=== PATIENT | female | born 1995 | race Caucasian/White ===

== ENCOUNTER 2024-06-22 13:27 | Inpatient (IN) | payer MEDICARE, MEDICAID, SELFPAY ==
[2024-06-22 13:29] VITALS: BP 124/80; PULSE 95; RESP 18; TEMP 36.5; O2SAT 96; BMI 46.4
--- NOTE | 2024-06-22 13:42 | EX.ED.DYSGE1 ---
HPI <LEXII Knapp - Last Filed: 06/22/24 15:47> History of Present Illness Chief Complaint: Substance Abuse Narrative Narrative: 28-year-old female is here requesting detox from smoking fentanyl and methamphetamine. Last use was 2 days ago. She denies withdrawal symptoms but called [facility] because she wanted to go to a residential treatment program and they sent her here for medical clearance. She has been smoking meth for 5 years been smoking fentanyl for 2 years. She also smokes weed. No alcohol use. No IV drug use. No history of detox in the past. She states she has mental health issues but is not on any prescription medications. She denies feeling suicidal or homicidal. [facility] <LEXII Knapp - Last Filed: 06/22/24 15:47> [facility] Medical History (Updated 06/22/24 @ 14:57 by Aurora Peng) Substance abuse Home Medications ?Medication ?Instructions ?Recorded ?Last Taken ?Type NK 06/22/24 Unknown History Allergy/AdvReac Type Severity Reaction Status Date / Time Penicillins Allergy Anaphylaxis Verified 06/22/24 13:33 Social History Smoking Status: Current every day smoker tobacco type: cigarettes ROS <LEXII Knapp - Last Filed: 06/22/24 15:47> ROS ED ROS Narrative Constitutional: Negative for fever, chills, malaise. CVS: Negative for chest pain. Respiratory: Negative for shortness of breath. GI: Negative for abdominal pain, nausea, vomiting, diarrhea. EXAM <LEXII Knapp - Last Filed: 06/22/24 15:47> Physical Exam Narrative Exam Narrative: CONST: Patient sitting in no acute distress. EYES: Normal inspection. NECK: Normal inspection. RESP: No respiratory distress, CTAB. CVS: Regular rate and rhythm, no murmur, no gallop. ABD: Soft and nontender, no guarding or rebound, nondistended. SKIN: Color normal, no rash, warm, dry, intact. EXTREMITIES: Normal appearance, no pedal edema. NEURO: Alert and answering questions appropriately. PSYCH: Normal affect. Const Vital Signs: 06/22/24 13:29 06/22/24 15:04 Temperature 97.7 F L 98.2 F Temperature Source Temporal Pulse Rate 95 78 Respiratory Rate 18 14 Blood Pressure 124/80 H 124/71 H Blood Pressure Mean 94 88 Pulse Ox 96 99 Oxygen Delivery Method Room Air <Dr. Wing Medley DO - Last Filed: 06/22/24 15:29> Physical Exam Const Vital Signs: 06/22/24 13:29 06/22/24 15:04 Temperature 97.7 F L 98.2 F Temperature Source Temporal Pulse Rate 95 78 Respiratory Rate 18 14 Blood Pressure 124/80 H 124/71 H Blood Pressure Mean 94 88 Pulse Ox 96 99 Oxygen Delivery Method Room Air MDM <LEXII Knapp - Last Filed: 06/22/24 15:47> [facility] MDM Narrative Medical decision making narrative: 28-year-old female is here to detox from smoking fentanyl methamphetamine with last use 2 days ago. She is asymptomatic. She was sent here by [facility]. She appears well and nontoxic. Vital signs stable. Overall her exam is unremarkable. CBC and CMP are unremarkable. Urine tox screen positive for amphetamines, benzodiazepines, and cannabinoids. Alcohol negative. test negative. I discussed the case with the hospitalist for admission. Lab Data Attestation: I reviewed the patient's lab results. Labs: Laboratory Results - last 24 hr 06/22/24 06/22/24 13:05 13:45 WBC 6.2 RBC 5.01 Hgb 13.9 Hct 42.9 MCV 85.6 MCH 27.7 MCHC 32.4 RDW Std Deviation 46.2 H RDW Coeff of Estiven 14.7 H Plt Count 221 MPV 11.5 Immature Gran % (Auto) 0.300 Neut % (Auto) 67.4 Lymph % (Auto) 22.2 [place] % (Auto) 6.7 Eos % (Auto) 2.6 Baso % (Auto) 0.8 Absolute Neuts (auto) 4.2 Absolute Lymphs (auto) 1.38 Nucleated RBC % 0 Sodium 138 Potassium 4.2 Chloride 106 Carbon Dioxide 21.5 Anion Gap 11 BUN 4 Creatinine 0.80 Estim Creat Clear Calc 132.94 Est GFR (MDRD) Non-Af 102 BUN/Creatinine Ratio 5.3 L Glucose 95 Calcium 9.2 Total Bilirubin 0.57 AST 17 ALT 10 Alkaline Phosphatase 84 Total Protein 7.9 Albumin 4.1 Globulin 3.9 Albumin/Globulin Ratio 1.1 Serum , Qual NEGATIVE Urine Opiates Screen NEGATIVE U Buprenorphine Qual NEGATIVE Ur Oxycodone Screen NEGATIVE Urine Methadone Screen NEGATIVE Urine Fentanyl Screen PRESUMPTIVE POSITIVE Ur Barbiturates Screen NEGATIVE Ur Phencyclidine Scrn NEGATIVE Ur Amphetamines Screen PRESUMPTIVE POSITIVE U Benzodiazepines Scrn PRESUMPTIVE POSITIVE Urine Cocaine Screen NEGATIVE U Cannabinoids Screen PRESUMPTIVE POSITIVE Ethyl Alcohol < 10.1 <Dr. Wing Medley, DO - Last Filed: 06/22/24 15:29> MDM History & Record Review Discussion w/independent historian: Patient Lab Data Labs: Laboratory Results - last 24 hr 06/22/24 06/22/24 13:05 13:45 WBC 6.2 RBC 5.01 Hgb 13.9 Hct 42.9 MCV 85.6 MCH 27.7 MCHC 32.4 RDW Std Deviation 46.2 H RDW Coeff of Estiven 14.7 H Plt Count 221 MPV 11.5 Immature Gran % (Auto) 0.300 Neut % (Auto) 67.4 Lymph % (Auto) 22.2 [place] % (Auto) 6.7 Eos % (Auto) 2.6 Baso % (Auto) 0.8 Absolute Neuts (auto) 4.2 Absolute Lymphs (auto) 1.38 Nucleated RBC % 0 Sodium 138 Potassium 4.2 Chloride 106 Carbon Dioxide 21.5 Anion Gap 11 BUN 4 Creatinine 0.80 Estim Creat Clear Calc 132.94 Est GFR (MDRD) Non-Af 102 BUN/Creatinine Ratio 5.3 L Glucose 95 Calcium 9.2 Total Bilirubin 0.57 AST 17 ALT 10 Alkaline Phosphatase 84 Total Protein 7.9 Albumin 4.1 Globulin 3.9 Albumin/Globulin Ratio 1.1 Serum , Qual NEGATIVE Urine Opiates Screen NEGATIVE U Buprenorphine Qual NEGATIVE Ur Oxycodone Screen NEGATIVE Urine Methadone Screen NEGATIVE Urine Fentanyl Screen PRESUMPTIVE POSITIVE Ur Barbiturates Screen NEGATIVE Ur Phencyclidine Scrn NEGATIVE Ur Amphetamines Screen PRESUMPTIVE POSITIVE U Benzodiazepines Scrn PRESUMPTIVE POSITIVE Urine Cocaine Screen NEGATIVE U Cannabinoids Screen PRESUMPTIVE POSITIVE Ethyl Alcohol < 10.1 Treatment and Re-Evaluation :: I have personally performed a face to face assessment of the patient and have reviewed the ADY Note. I performed a substantive portion of the visit including all aspects of the following. My wray findings include: History is 28-year-old female presenting to the emergency room requesting admission to [facility] for detoxification of fentanyl and amphetamines. Patient states that she has been clean since of her child until 1 month ago. She gave in December. She states that [facility] is involved and she wants to work towards them not being involved. They became involved when she tested positive at . Patient states she called [facility] and referred to the emergency for detox. Patient denies IVDU. She notes a history of mental health but is not currently undergoing any treatment. Exam is patient tearful no suicidal homicidal ideation. Obese female no acute distress. Heart regular without murmur lung sounds are clear and equal. I do not appreciate significant open sores. Medical Decison Making random program labs will be ordered. Will review and discussed with hospitalist. Patient is not . Discharge Plan Triage Chief Complaint: Substance Abuse ED Midlevel Provider: Chastity Morton ED Provider: Wing Medley Dx/Rx/DC Orders Clinical Impression: Polysubstance abuse, Desire for detoxification Prescriptions: No Action NK Primary Care Provider: Care Physician,No Primary Referrals: Care Physician,No Primary [Primary Care Provider] - Print Language: Malian
[2024-06-22 14:02] LABS: Absolute Lymphocyte Count 1.38 X10^3/uL (0.83-4.51); Absolute Neutrophil Count 4.2 X10^3/uL (2.0-7.7); Basophil# 0.05 X10^3/uL; Basophil% 0.8 % (0-1); Eosinophil# 0.16 X10^3/uL; Eosinophils% 2.6 % (0-5); Hematocrit 42.9 % (37-47); Hemoglobin 13.9 g/dL (12.0-15.0); Lymphocyte # 1.38 X10^3/ul (0.83-4.51); Lymphocyte % 22.2 % (19-41); Mean Corp Hgb Conc 32.4 g/dL (32-36); Mean Corpuscular Hgb 27.7 pg (27.0-32.0); Mean Corpuscular Volume 85.6 fL (81-99); Mean Platelet Vol. 11.5 fl (6.2-12.0); Monocyte# 0.42 X10^3/uL; Monocyte% 6.7 % (0-10); NRBC Flagged by Analyzer 0 % (0-5); Neutrophil % 67.4 % (47-70); Platelet Count 221 K/mm3 (150-450); RBC Distribution Width CV 14.7 % (11.6-14.6); RBC Distribution Width SD 46.2 fl (35.1-43.9); Red Blood Count 5.01 M/mm3 (4.2-5.4); White Blood Count 6.2 K/mm3 (4.4-11.0)
[2024-06-22 14:20] LABS: Internal QC Validated? YES +Cl - CLEAR BKGD; Pregnancy, Serum, hCG Quali. NEGATIVE Negative
[2024-06-22 14:27] LABS: Alcohol, Blood (Medical)-Serum < 10.1 mg/dL (<=10.0)
[2024-06-22 14:37] LABS: ALB/GLOB Ratio 1.1 RATIO (0.9-2.4); AST(SGOT) 17 U/L (<=31); Alanine Aminotransfer ALT/SGPT 10 U/L (<=34); Albumin, Serum 4.1 g/dL (3.5-5.0); Alkaline Phosphatase 84 U/L (35-104); Anion Gap 11 (5-15); BUN 4 mg/dL (4-19); BUN/Creat Ratio 5.3 RATIO (10-20); Calcium,Total 9.2 mg/dL (7.6-11.0); Carbon Dioxide 21.5 mmol/L (21.0-32.0); Chloride 106 mmol/L (98-108); EST Glomerular Filtration Rate 102 (>60); Estimated Creatinine Clearance 132.94 ml/min (50-250); Globulin 3.9 g/dL (2.2-4.2); Potassium 4.2 mmol/L (3.3-5.1); Protein, Total 7.9 g/dL (5.9-8.4); Sodium Level 138 mmol/L (133-145); Total Bilirubin 0.57 mg/dL (0.00-1.30)
[2024-06-22 14:42] LABS: Glucose 95 mg/dL (70-99)
[2024-06-22 14:56] LABS: Amphetamine Urine PRESUMPTIVE POSITIVE (<1000 ng/mL); Barbiturate Urine NEGATIVE (< 200 ng/mL); Benzodiazepine Urine PRESUMPTIVE POSITIVE (< 200 ng/mL); Buprenorphine Urine NEGATIVE (< 200 ng/mL); Cocaine Urine NEGATIVE (< 300 ng/mL); Fentanyl, Urine PRESUMPTIVE POSITIVE; Methadone Urine NEGATIVE (< 300 ng/mL); Opiates Urine NEGATIVE (< 300 ng/mL); Oxycodone, Urine NEGATIVE (< 100 ng/mL); PCP Urine NEGATIVE (< 25 ng/mL); THC Urine PRESUMPTIVE POSITIVE (< 50 ng/mL)
[2024-06-22 15:04] VITALS: BP 124/71; PULSE 78; RESP 14; TEMP 36.8; O2SAT 99
[2024-06-22 16:00] VITALS: BP 93/60; PULSE 92; RESP 18; O2SAT 98
[2024-06-22 16:38] VITALS: BP 119/85; PULSE 85; RESP 16; TEMP 36.8; O2SAT 99
[2024-06-22 16:43] VITALS: BMI 46.1
--- NOTE | 2024-06-22 17:10 | HP.PCM.HOS_ITS ---
HPI - General General Date of Admission: 06/22/24 HPI Narrative AMNA VASQUEZ, is a 28 F who presents to the hospital requesting detox from fentanyl and methamphetamines. She smokes both and her last use was on Saturday. She presented to [facility] as an outpatient this morning requesting residential treatment and they requested that she can pleated a medical clearance first prior to going inpatient. She states that she has never gone through withdrawal when she is quit using these drugs in the past. Currently her scores a 0. She denies any IV drug use. [facility] Medical History (Updated 06/22/24 @ 14:57 by Aurora Peng) Substance abuse Home Medications ?Medication ?Instructions ?Recorded ?Last Taken ?Type NK 06/22/24 Unknown History Allergy/AdvReac Type Severity Reaction Status Date / Time Penicillins Allergy Anaphylaxis Verified 06/22/24 13:33 Family History (Updated 06/22/24 @ 17:[address] Cliff Calvert MD) Other Diabetes Heart disease Surgical History (Updated 06/22/24 @ 17:[address] Cliff Calvert MD) History of cholecystectomy Social History Smoking Status: Current every day smoker tobacco type: cigarettes ROS Constitutional Constitutional: Denies chills, fatigue, fever(s) or malaise Eyes Eyes: Denies blurry vision ENT HEENT: Denies headache(s) or nasal discharge Cardiovascular Cardiovascular: Denies chest pain, dyspnea on exertion or syncope Respiratory/Chest Respiratory/Chest: Denies cough, shortness of breath at rest or shortness of breath with exertion Gastrointestinal Gastrointestinal: Denies constipation, diarrhea, nausea or vomiting Genitourinary Genitourinary: Denies dysuria Neurologic Neurologic: Denies focal weakness, numbness or tremor(s) Psychiatric Psychiatric: Denies anxiety or depression Vital Signs Vital Signs Vital Signs: 06/22/24 13:29 06/22/24 15:04 06/22/24 16:00 Temperature 97.7 F L 98.2 F Temperature Source Temporal Pulse Rate 95 78 92 Respiratory Rate 18 14 18 Blood Pressure 124/80 H 124/71 H 93/60 Blood Pressure Mean 94 88 71 Blood Pressure Source Blood Pressure Position Blood Pressure Location Pulse Ox 96 99 98 Oxygen Delivery Method Room Air Room Air 06/22/24 16:38 Temperature 98.2 F Temperature Source Temporal Pulse Rate 85 Respiratory Rate 16 Blood Pressure 119/85 H Blood Pressure Mean 96 Blood Pressure Source Monitor Blood Pressure Position Sitting Blood Pressure Location Right Arm Pulse Ox 99 Oxygen Delivery Method Room Air Weight Weight: 270 lb 8.115 oz Body Mass Index (BMI) 46.1 Physical Exam Narrative General: Alert, Oriented x3, Cooperative, No apparent distress HEENT: Atraumatic, PERRLA, EOMI, Normocephalic Oral: Moist Mucosa Neck: Supple, No JVD Lungs: Clear to auscultation, Normal air movement, No rhonchi, No wheeze, No rales Cardiovascular: Regular rate, Regular Rhythm, Normal S1, Normal S2, No murmurs Abdomen: Soft, Non Tender, Non-Distended, No Hepato-splenomegaly Extremities: No edema, Capillary Refill Less than 3 Seconds Skin: No rashes, No breakdown Musculoskeletal: No Tenderness to Palpation of Joints or Extremities Neurological: No focal neurological deficits, Motor Exam 5/5 strength throughout, Sensory exam intact to light touch and pain Psych/Mental Status: Normal Affect, Appropriate Results Lab / Micro Data 06/22/24 13:45 06/22/24 13:45 Labs: Laboratory Results - last 24 hr 06/22/24 13:05: Urine Opiates Screen NEGATIVE, U Buprenorphine Qual NEGATIVE, Ur Oxycodone Screen NEGATIVE, Urine Methadone Screen NEGATIVE, Urine Fentanyl Screen PRESUMPTIVE POSITIVE, Ur Barbiturates Screen NEGATIVE, Ur Phencyclidine Scrn NEGATIVE, Ur Amphetamines Screen PRESUMPTIVE POSITIVE, U Benzodiazepines Scrn PRESUMPTIVE POSITIVE, Urine Cocaine Screen NEGATIVE, U Cannabinoids Screen PRESUMPTIVE POSITIVE 06/22/24 13:45: WBC 6.2, RBC 5.01, Hgb 13.9, Hct 42.9, MCV 85.6, MCH 27.7, MCHC 32.4, RDW Std Deviation 46.2 H, RDW Coeff of Estiven 14.7 H, Plt Count 221, MPV 11.5, Immature Gran % (Auto) 0.300, Neut % (Auto) 67.4, Lymph % (Auto) 22.2, [place] % (Auto) 6.7, Eos % (Auto) 2.6, Baso % (Auto) 0.8, Absolute Neuts (auto) 4.2, Absolute Lymphs (auto) 1.38, Nucleated RBC % 0, Sodium 138, Potassium 4.2, Chloride 106, Carbon Dioxide 21.5, Anion Gap 11, BUN 4, Creatinine 0.80, Estim Creat Clear Calc 132.94, Est GFR (MDRD) Non-Af 102, BUN/Creatinine Ratio 5.3 L, Glucose 95, Calcium 9.2, Total Bilirubin 0.57, AST 17, ALT 10, Alkaline Phosphatase 84, Total Protein 7.9, Albumin 4.1, Globulin 3.9, Albumin/Globulin Ratio 1.1, Serum , Qual NEGATIVE, Ethyl Alcohol < 10.1 Assessment & Plan Assessment/Plan (1) Desire for detoxification: (2) Polysubstance abuse: PLAN: Plan 1. Fentanyl and methamphetamine abuse requesting detox/tobacco abuse/anxiety/depression ? She does not want a nicotine patch, we did discuss cessation ? Continue with the opiate withdrawal protocol ? She has never gone through withdrawal before and she has been able to quit on her own ? Will have her meet with [facility] for discharge planning to inpatient rehab DVT: Ambulation 60 minutes was spent on direct patient care, including documentation as well as chart review and collaboration with colleagues Charges/Coding Visit Charges Inpatient E&M: 68360 Init Hosp L2
[2024-06-22 21:19] VITALS: BP 98/52; PULSE 94; RESP 18; TEMP 37.2; O2SAT 96
[2024-06-23 04:12] VITALS: BP 115/68; PULSE 96; RESP 18; TEMP 36.9; O2SAT 97
[2024-06-23 07:41] VITALS: BP 110/74; PULSE 83; RESP 16; TEMP 37.3; O2SAT 98
--- NOTE | 2024-06-23 11:27 | ADDICTION ---
This senior copywriter met with PT to conduct ASAM, MSE, DUDIT assessments and to plan for d/c. PT A+Ox4 and participated actively. All assessments completed and placed in PT's chart. PT plans to f/u with [facility] for follow-up in patient treatment services on Saturday. [facility] will transport to treatment.
[2024-06-23 15:55] VITALS: BP 112/71; PULSE 86; RESP 16; TEMP 36.3; O2SAT 98
--- NOTE | 2024-06-23 18:32 | PCM.PN.HOSP ---
Reason for Visit Reason for Visit: Diagnoses Other psychoactive substance abuse, uncomplicated (06/22/24) Subjective Subjective Patient lying in bed, denies any acute symptoms at this time Objective Data Objective Data Vital Signs: Vital Signs Temp Pulse Resp BP Pulse Ox O2 Del Method 97.4 F L 86 16 112/71 98 Room Air 06/23/24 15:55 06/23/24 15:55 06/23/24 15:55 06/23/24 15:55 06/23/24 15:55 06/23/24 15:55 Oxygen Delivery Method Room Air Weight: 122.7 kg Body Mass Index (BMI) 46.1 Intake & Output: Intake and Output for Last 24 Hours 06/21/24 06/22/24 06/23/24 23:59 23:59 23:59 Intake Total 100 / 100 200 / 200 Balance 100 / 100 200 / 200 Lab / Micro Data 06/22/24 13:45 06/22/24 13:45 Physical Exam Narrative General: Alert, oriented, no apparent distress HEENT: Atraumatic, normocephalic Eyes: extraocular movements grossly intact Neck: Supple Respiratory: normal respiratory effort Cardiovascular: no edema appreciated GI: nondistended Extremities: Moving all extremities Neuro: No overt focal neurological deficits Psych: Cooperative Assessment & Plan Assessment/Plan (1) Desire for detoxification: (2) Polysubstance abuse: PLAN: Plan 1. Fentanyl and methamphetamine abuse requesting detox/tobacco abuse/anxiety/depression ? She does not want a nicotine patch, we did discuss cessation ? Continue with the opiate withdrawal protocol ? She has never gone through withdrawal before and she has been able to quit on her own ? Will have her meet with [facility] for discharge planning to inpatient rehab -06/23: Likely DC to inpatient rehab tomorrow as long as patient does not develop withdrawal symptoms, did discuss with patient that she had benzos positive in her UDS and she adamantly denies using this routinely and suspects that this was in fentanyl that she used, denies any routine benzodiazepine use so low concern for any withdrawal, patient seems forthcoming about this, continue to monitor on COWS DVT: Ambulation 60 minutes was spent on direct patient care, including documentation as well as chart review and collaboration with colleagues Charges/Coding Visit Charges Inpatient E&M: 68315 Subs Hosp L1
[2024-06-23 20:12] VITALS: BP 102/52; PULSE 89; RESP 16; TEMP 37.1; O2SAT 96
[2024-06-24 03:47] VITALS: BP 116/98; PULSE 88; RESP 16; TEMP 36.3; O2SAT 97
[2024-06-24 09:13] VITALS: BP 105/59; PULSE 60; RESP 16; TEMP 36.7; O2SAT 97
--- NOTE | 2024-06-24 10:07 | DCINST_ITS ---
Discharge Instructions Diet Discharge Diet: No restrictions DC O2, CPAP, BIPAP needs Home O2 Discharge instructions: No Dressing / Incision Discharge Activity: Return to Normal Activity Follow Up Care Test Results: Test results from this visit will be discussed in further detail at your follow- up appointment, if applicable. Discharge Plan Admission Admit Date/Time: 06/22/24 15:07 Primary Reason for Your Visit: Opioid detox Attending Provider: Cyndie Peng Primary Care Provider: Care Physician,No Primary Consulting Providers: Cliff Calvert Instructions Patient Instructions: Addiction Recovery Counseling Additional Instructions / Restrictions: -Please call your primary care provider's office upon discharge to schedule a hospital follow up within 1 week. -For any concerning signs or symptoms please call 911 or proceed to the nearest emergency department -If you do not have a primary care physician of list of local primary care physicians can be provided for you upon discharge. Please ask for this list prior to discharge Discharge Orders/Prescriptions Prescriptions: No Action NK Referrals / Follow Up: Care Physician,No Primary [Primary Care Provider] - (-If you do not have a primary care physician of list of local primary care physicians can be provided for you upon discharge. Please ask for this list prior to discharge) Disposition Disposition (needs filled in before D/C Order can be placed): Home, Self Care
--- NOTE | 2024-06-24 10:14 | PCM.DC.SUM ---
Providers Date of Admission: 06/22/24 Date of Discharge: 06/24/24 Primary Care Physician: Robyn Primary Care Phys Reason For Visit: OPIATE DETOX Diagnosis Discharge Diagnosis (1) Desire for detoxification: Status: Acute (2) Polysubstance abuse: Status: Acute Code(s): F19.10 - Other psychoactive substance abuse, uncomplicated Plan 1. Fentanyl and methamphetamine abuse requesting detox/tobacco abuse/anxiety/depression Medications at Discharge Home Medications NK 06/22/24 Hospital Course Summary of Care Provided Minutes Spent on Discharge: 20 Hospital Course: Patient was admitted 06/22 requesting detox from fentanyl. Patient was admitted and detox protocol ordered. Patient never required initiation of Subutex taper and was sent to inpatient substance rehab in stable condition Physical Exam Narrative General: Alert, no apparent distress HEENT: Atraumatic, normocephalic Eyes: extraocular movements grossly intact Neck: Supple Respiratory: normal respiratory effort Extremities: Moving all extremities Neuro: No overt focal neurological deficits Psych: Cooperative Weight / BMI Weight Weight: 122.7 kg Body Mass Index (BMI) 46.1 ABG / Lab / Microbiology Data 06/22/24 13:45 06/22/24 13:45 D/C Instructions Discharge Diet: No restrictions DC O2, CPAP, BIPAP Needs Home O2 Discharge instructions: No Meaningful Use Info Meaningful Use Meaningful Use Diagnoses (Choose all that apply): None applicable Ischemic Stroke Statin Dosing Therapy Reference: STATIN DOSE THERAPY REFERENCE: * Patients > 75 years receive moderate or high dose statin therapy. * Patients 75 years or YOUNGER should receive HIGH intensity statin dose unless contraindicated. You will be required to document reason for non-treatment if statin daily dose does not meet guidelines. HIGH DOSE STATIN THERAPY DAILY Atorvastatin > than or = to 40 mg Rosuvastatin > than or = to 20 mg Amlodipine + Atorvastatin > than or = to 2.5/40 mg Ezetimibe + Simvastatin 10/80 mg Simvastatin 80mg Discharge Plan Admission Admit Date/Time: 06/22/24 15:07 Primary Reason for Your Visit: Opioid detox Attending Provider: Cyndie Peng Primary Care Provider: Jaylen Waite,Robyn Primary Consulting Providers: Cliff Calvert Instructions Patient Instructions: Addiction Recovery Counseling Additional Instructions / Restrictions: -Please call your primary care provider's office upon discharge to schedule a hospital follow up within 1 week. -For any concerning signs or symptoms please call 911 or proceed to the nearest emergency department -If you do not have a primary care physician of list of local primary care physicians can be provided for you upon discharge. Please ask for this list prior to discharge Discharge Orders/Prescriptions Prescriptions: No Action NK Referrals / Follow Up: Care Physician,No Primary [Primary Care Provider] - (-If you do not have a primary care physician of list of local primary care physicians can be provided for you upon discharge. Please ask for this list prior to discharge) Disposition Disposition (needs filled in before D/C Order can be placed): Home, Self Care Charges/Coding Visit Charges Inpatient E&M: 77253 Disch Hosp
== END 2024-06-24 10:45 | disposition home or self-care (01) | DRG 897 ==
LOC: ED 15:09 → MS3 15:49
PROVIDERS: Physician Assistant; Admitting Provider Family Medicine; Emergency Provider Emergency Medicine; Visit Provider Internal Medicine
DX: F11.10 Opioid abuse, uncomplicated (principal); Z68.42 Body mass index [BMI] 45.0-49.9, adult; E66.01 Morbid (severe) obesity due to excess calories; F15.10 Other stimulant abuse, uncomplicated; F32.A Depression, unspecified; F41.9 Anxiety disorder, unspecified; F17.210 Nicotine dependence, cigarettes, uncomplicated
CPT/HCPCS: 80053; 80307; 82077; 84703; 85025; 99283

== ENCOUNTER → 2024-07-23 | Outpatient (CLI) | payer MEDICARE, MEDICAID, SELFPAY ==
[2024-07-23 16:54] LABS: Absolute Lymphocyte Count 2.73 X10^3/uL (0.83-4.51); Absolute Neutrophil Count 4.8 X10^3/uL (2.0-7.7); Basophil# 0.08 X10^3/uL; Basophil% 0.9 % (0-1); Eosinophil# 0.51 X10^3/uL; Eosinophils% 5.8 % (0-5); Hematocrit 38.6 % (37-47); Hemoglobin 12.3 g/dL (12.0-15.0); Lymphocyte # 2.73 X10^3/ul (0.83-4.51); Lymphocyte % 31.2 % (19-41); Mean Corp Hgb Conc 31.9 g/dL (32-36); Mean Corpuscular Hgb 27.8 pg (27.0-32.0); Mean Corpuscular Volume 87.1 fL (81-99); Mean Platelet Vol. 11.5 fl (6.2-12.0); Monocyte# 0.64 X10^3/uL; Monocyte% 7.3 % (0-10); NRBC Flagged by Analyzer 0 % (0-5); Neutrophil # 4.79 X10^3/uL (2.7-7.7); Neutrophil % 54.7 % (47-70); Platelet Count 240 K/mm3 (150-450); RBC Distribution Width CV 14.6 % (11.6-14.6); RBC Distribution Width SD 47.1 fl (35.1-43.9); Red Blood Count 4.43 M/mm3 (4.2-5.4); White Blood Count 8.8 K/mm3 (4.4-11.0)
[2024-07-23 18:08] LABS: ALB/GLOB Ratio 1.1 RATIO (0.9-2.4); AST(SGOT) 16 U/L (<=31); Alanine Aminotransfer ALT/SGPT 16 U/L (<=34); Albumin, Serum 3.9 g/dL (3.5-5.0); Alkaline Phosphatase 88 U/L (35-104); Anion Gap 13 (5-15); BUN 13 mg/dL (4-19); Calcium,Total 9.1 mg/dL (7.6-11.0); Carbon Dioxide 22.7 mmol/L (21.0-32.0); Chloride 104 mmol/L (98-108); Creatinine, Serum 0.88 mg/dL (0.70-1.20); EST Glomerular Filtration Rate 91 (>60); Ferritin 11 ng/mL (22-378); Globulin 3.6 g/dL (2.2-4.2); Glucose 77 mg/dL (70-99); HIV Nonreactive (Nonreactive); Iron 30 ug/dL (50-170); Iron Binding Capacity,Total 416 ug/dL (250-450); Iron Binding Capacity,Unsat 386 ug/dL (228-428); Potassium 4.2 mmol/L (3.3-5.1); Protein, Total 7.5 g/dL (5.9-8.4); Sodium Level 140 mmol/L (133-145); Syphilis Antibodies Nonreactive (Nonreactive); Total Bilirubin 0.15 mg/dL (0.00-1.30)
[2024-07-25 05:07] LABS: HEPATITIS B SURFACE AG Negative (Negative); Hep C Antibodies Non Reactive (Non Reactive); Hepatitis A IgM Antibody Negative (Negative); Hepatitis B Core AB IgM Negative (Negative)
== END | disposition home or self-care (01) ==
LOC: VSLAB 14:20
PROVIDERS: PCP Nurse Practitioner Family; Visit Provider Nurse Practitioner Family
DX: N92.0 Excessive and frequent menstruation with regular cycle (principal); Z11.3 Encounter for screening for infections with a predominantly sexual mode of transmission; Z12.4 Encounter for screening for malignant neoplasm of cervix
CPT/HCPCS: 36415; 80053; 80074; 82728; 83540; 83550; 85025; 86703; 86780

== ENCOUNTER → 2025-01-28 | Outpatient (CLI) | payer MEDICARE, MEDICAID, SELFPAY ==
[2025-01-28 11:27] LABS: Hematocrit 42.9 % (37-47); Hemoglobin 13.7 g/dL (12.0-15.0); Immature Granulocytes Count 0.070 X10^3/uL (0.0-0.0); Mean Corp Hgb Conc 31.9 g/dL (32-36); Mean Corpuscular Volume 92.9 fL (81-99); Mean Platelet Vol. 11.0 fl (6.2-12.0); NRBC Flagged by Analyzer 0 % (0-5); Platelet Count 229 K/mm3 (150-450); RBC Distribution Width CV 12.9 % (11.6-14.6); RBC Distribution Width SD 43.5 fl (35.1-43.9); Red Blood Count 4.62 M/mm3 (4.2-5.4); White Blood Count 10.0 K/mm3 (4.4-11.0)
[2025-01-28 11:59] LABS: AST(SGOT) 15 U/L (<=31); Alanine Aminotransfer ALT/SGPT 12 U/L (<=34); Albumin, Serum 3.8 g/dL (3.5-5.0); Alkaline Phosphatase 79 U/L (35-104); Anion Gap 10 (5-15); BUN 12 mg/dL (4-19); BUN/Creat Ratio 16.5 RATIO (10-20); Calcium,Total 9.0 mg/dL (7.6-11.0); Carbon Dioxide 23.5 mmol/L (21.0-32.0); Chloride 104 mmol/L (98-108); Cholesterol 171 mg/dL (<=200); Ferritin 47 ng/mL (22-378); Free T3 3.1 pg/mL (2.18-3.98); Globulin 4.1 g/dL (2.2-4.2); Glucose 96 mg/dL (70-99); Low Density Lipoprotein Calc. 109 mg/dL; Potassium 4.5 mmol/L (3.3-5.1); Triglycerides 84 mg/dL; Very Low Density Lipoprotein 17 mg/dL (5-40); cholesterol:hdl ratio screen 3.70
[2025-01-28 13:04] LABS: Iron 79 ug/dL (50-170); Iron Binding Capacity,Total 353 ug/dL (250-450); Iron Binding Capacity,Unsat 274 ug/dL (228-428)
== END | disposition home or self-care (01) ==
LOC: VSLAB 09:13
PROVIDERS: PCP Nurse Practitioner Family; Referring Provider Nurse Practitioner Family; Visit Provider Nurse Practitioner Family
DX: D50.9 Iron deficiency anemia, unspecified (principal); E66.9 Obesity, unspecified; Z13.220 Encounter for screening for lipoid disorders; Z13.1 Encounter for screening for diabetes mellitus
CPT/HCPCS: 36415; 80053; 80061; 82728; 83036; 83540; 83550; 84439; 84443; 84481; 85025; 86376